=== PATIENT | female | born 1945 | race Caucasian/White ===

== ENCOUNTER 2021-06-10 07:16 | Day surgery (SDC) | payer OTHER, SELFPAY ==
[2021-06-10] MEDS: Tropicam./Phenyleph. (1/2.5%) 5 ML BTL OS ×3 (07:52→08:06)
[2021-06-10 08:01] VITALS: BP 148/78; PULSE 78; RESP 16; TEMP 35.9; O2SAT 97
--- NOTE | 2021-06-10 08:35 | ANES.PREOP_ITS ---
General Info Date of Service Date Performed: 06/10/21 Height: 5 ft 3 in Weight: 82.5 kg Body Mass Index (BMI): 32.2 Surgical Procedure: Operation Date: 06/10/21 09:40 Proposed Procedures Side Surgeon p Cataract Extraction with IOL Implant Left Mohamud Whittington MD Meds Allergies and Home Medications Allergies Allergy/AdvReac Type Severity Reaction Status Date / Time lisinopril AdvReac Mild COUGH Unverified 06/10/21 07:54 Home Medication Medication Instructions Recorded ascorbic acid (vitamin C) [Vitamin 1,000 mg PO DAILY 06/08/21 C] aspirin 81 mg PO DAILY 06/08/21 calcium 500 mg PO DAILY 06/08/21 cholecalciferol (vitamin D3) 1,000 - 2,000 unit PO DAILY 06/08/21 [Vitamin D3] coenzyme Q10 [Co Q-10] 200 mg PO DAILY 06/08/21 cyanocobalamin (vitamin B-12) 2,500 mcg PO DAILY 06/08/21 [Vitamin B-12] metoprolol succinate 50 mg PO BID 06/08/21 rosuvastatin 5 mg PO DIRECTED 06/08/21 triamcinolone acetonide 1 applic TOPICAL TID 06/08/21 vitamin A acetate 10,000 unit SUBLINGUAL DAILY 06/08/21 Current Visit Medications: Current Medications Generic Name Dose Route Start Last Admin Trade Name Freq PRN Reason Stop Dose Admin Acetaminophen 1,000 mg 06/10/21 06:00 Acetaminophen 500 Mg Tab PO Q4H PRN PRN Miscellaneous Medication 0 ml 06/10/21 06:00 Prednisolone 1%, Moxifloxacin 0.5%, Nepafenac 0.1% 5ml Btl OS DIRECTED REPLACED BY [facility] Miscellaneous Medication 0 ml 06/10/21 06:00 06/10/21 08:06 Tropicam./Phenyleph. (1/2.5%) 5 Ml Btl OS 1 drp DIRECTED REPLACED BY [facility] Administration Tetracaine HCl 0 ml 06/10/21 06:00 Tetracaine 0.5% 4 Ml Btl OS DIRECTED [facility] Medical History Medical History Carotid stenosis Left mild by doppler 04/16/2007 Diabetes mellitus H/O cardiovascular stress test 12/2012 [facility] [place] normal [address]. Castillo [facility]. Normal 1998 ETT normal HTN (hypertension) Hx of mammogram Hypercholesteremia Obesity Retinopathy Per [facility] note: Ischemic. branch retinal artery occulsion-aortic arthroma- trial plavix-hemmhorrhage on ASA 81 mg Ischemic retinopathy and chest pains associated with driving at altitudes, particulary over [facility] Surgical History Surgical History (Updated 06/10/21 @ 07:54 by Heide Juarez) Hx of cholecystectomy Hx of hysterectomy S/P MANUEL-BSO (total abdominal hysterectomy and bilateral salpingo-oophorectomy) Tobacco Smoking/Tobacco Use Status: Former Tobacco Use Alcohol Alcohol Intake: former Substance Use Substance use type: does not use Vital Signs and Lab Results Vital Signs Most Recent Vital Signs in EMR: Most Recent Vital Signs Temp Pulse Resp BP Pulse Ox 35.9 C L 78 16 148/78 H 97 06/10/21 08:01 06/10/21 08:01 06/10/21 08:01 06/10/21 08:01 06/10/21 08:01 Lab Results Blood Type / Crossmatch: No Data to Display Complete Blood Count: No Data to Display Complete Metabolic Panel: No Data to Display Liver Function Panel: No Data to Display Coagulation Panel: No Data to Display Cardiac Panel: No Data to Display Arterial Blood Gas: No Data to Display Venous Blood Gas: No Data to Display Pancreas Panel: No Data to Display Thyroid Panel: No Data to Display Infectious Disease: No Data to Display Blood Cultures: No Data to Display Toxicology Panel: No Data to Display Anesthesia Assessment and Plan Anesthesia History Personal History: No History of Anesthesia Complications Family History: No Family History of Anesthesia Complications Exercise Tolerance Exercise Tolerance: Metabolic Equivalents>4 Pertinent Negatives Pertinent Negatives: No Symptoms of GERD, No Major Pulmonary Symptoms or Complaints and No History of CVA/TIA Cardiac & Pulmonary Exam Cardiac Exam: Normal S1/S2 Heart Sounds Pulmonary Exam: Clear Bilateral Breath Sounds Airway Exam Known Difficult Airway: No Mallampati Class: 2 Mouth Opening: Normal (> 3cm) Thyromental Distance: Greater than 3 cm Neck Range of Motion: Full ROM Neck Circumference: Normal Teeth Condition: Normal Dentition ASA Classification ASA Score: ASA 2 Emergency Case?: No NPO Status NPO Status: NPO Clears >2 hours, Solids >8 hours Anesthesia Plan Resuscitation Status: Full Code Anesthesia Technique: MAC Anesthesia Airway Planned: Natural Airway Monitors Used: Standard Monitors
[2021-06-10 08:38] VITALS: BMI 32.2
[2021-06-10] MEDS: Tetracaine 0.5% 4 ML BTL OS (09:21)
[2021-06-10] MEDS: Balanced Salt Soln.-PLUS 500 ML BAG (09:22)
[2021-06-10] MEDS: Duovisc Viscoelastic System EACH 1 EACH (09:23)
[2021-06-10] MEDS: Lidocaine 1% Pres-Free 5 ML VIAL (09:23)
[2021-06-10] MEDS: Lidocaine 2% Jelly 6 ML SYR (09:24)
[2021-06-10] MEDS: Povidone-Iodine Ophth 30 ML BTL (09:25)
[2021-06-10] MEDS: Trypan Blue 0.06% 0.5 ML SYR (09:26)
[2021-06-10 09:37] VITALS: BP 177/92; PULSE 84; RESP 18; TEMP 36.4; O2SAT 97
--- NOTE | 2021-06-10 09:37 | W.PM.DSUDISC ---
Discharge Plan Disposition Patient Disposition: HOME Condition: Good Discharge Details Attending Provider: Mohamud Whittington Primary Care Provider: My Elliott Home Meds and New Rx's Prescriptions: No Action metoprolol succinate 50 mg tablet extended release 24 hr 50 mg PO BID RF: 0 calcium 500 mg Tablet 500 mg PO DAILY RF: 0 cyanocobalamin (vitamin B-12) [Vitamin B-12] 1,000 mcg Tablet 2,500 mcg PO DAILY RF: 0 triamcinolone acetonide 0.1 % Cream 1 applic TOPICAL TID RF: 0 aspirin 81 mg Capsule,Delayed Release(Dr/Ec) 81 mg PO DAILY RF: 0 ascorbic acid (vitamin C) [Vitamin C] 500 mg Tablet,Chewable 1,000 mg PO DAILY RF: 0 rosuvastatin 5 mg tablet 5 mg PO DIRECTED RF: 0 coenzyme Q10 [Co Q-10] 200 mg Capsule 200 mg PO DAILY RF: 0 cholecalciferol (vitamin D3) [Vitamin D3] 25 mcg (1,000 unit) Tablet 1,000 - 2,000 unit PO DAILY RF: 0 vitamin A acetate 10,000 unit Tablet, Sublingual 10,000 unit sublingual DAILY RF: 0 Discharge Instructions Stand Alone Forms: Post-op Topical Cataract, Hilda Mejias (DSU) Discharge Orders Discharge Orders: Discharge Order (Routine); Ordered 06/10/21 Ordered By: Mohamud Whittington DS: Diagnosis Discharge Diagnosis (1) Nuclear sclerotic cataract of left eye: Status: Resolved (2) Cortical cataract of left eye: Status: Resolved
--- NOTE | 2021-06-10 09:38 | ROE_ITS ---
Date of service: 06/10/21 Time of Service: 09:38 Operative Note Operative Note DATE OF PROCEDURE: 06/10/21 PRE-OP DIAGNOSIS: Nuclear/cortical cataract, left eye Poor red reflex, left eye secondary to cortical cataract POST-OP DIAGNOSIS: same PROCEDURE: Cataract extraction using phacoemulsification with intraocular lens implant, left eye, using capsular staining with Vision Blue SURGEON: Mohamud Whittington ANESTHESIA TYPE: Local By Surgeon and MAC Refer to Anesthesia Record COMPLICATIONS: None Patient was transported to: same day Patient's condition: stable Implants: Jamie and Jamie / [employer] Tecnis [id number] Indications: Progressive decreased vision due to cataract, left eye, with poor red reflex Procedure Description: CATARACT SURGERY OPERATIVE REPORT PREOPERATIVE DIAGNOSIS: 1. Nuclear/cortical cataract, left eye 2. Poor red reflex secondary to #1 POSTOPERATIVE DIAGNOSIS: Same OPERATION: 1. Cataract extraction using phacoemulsification with posterior chamber intraocular lens implant, left eye. 2. Capsular staining with Vision Blue IOL: IOL Universal Branch Consultant/Model: Jamie & Jamie / MARIA EUGENIA Tecnis [id number] IOL Power: + 22.0 diopters IOL Serial Number: [id number] Optic Diameter: 6.0 mm Haptic/Overall Diameter: 13.0 mm PHACO INFO: Noel Centurion Vision System with OZil and Active Fluidics Cumulative Dispersed Energy (CDE): 6.98 seconds SURGEON: Mohamud Whittington MD, CELIA ANESTHESIA: Monitored A [facility] (MAC), with local sub-tenon's anesthetic infiltration COMPLICATIONS: None SPECIMENS: None INDICATIONS FOR PROCEDURE: The patient is a 75-year-old lady with history of diminished visual acuity in her left eye secondary to the development of significant nuclear and cortical cataract. She is symptomatic enough that she desires cataract surgery and attempt to improve and maximize her vision. The option of cataract surgery was offered to the patient and she wished to proceed. PROCEDURE: The correct surgical eye was identified and marked as the left eye and the pupil was dilated in the preoperative area using mydriatics and cycloplegics. The dilated pupil size was 7.0 mm. She elected to proceed without oral sedation. The patient was brought to the operating room where cardiopulmonary monitoring was instituted and surgical time-out was performed, confirming the correct operative eye and IOL power. Topical anesthesia was administered and ophthalmic povidone-iodine 5% was instilled into the conjunctival fornices. Lidocaine gel was applied to the cornea and the mallika-ocular area was prepped with Betadine 10% solution and draped in the usual sterile fashion for intraocular surgery, including an aperture drape. A Tegaderm transparent film dressing was cut in half and used to cover the lashes and lid margins. Care was taken to sequester the lashes and lid margins under the Tegaderm dressing. A lid speculum was placed between the lids of the operative eye and the Rima-Daryl operating microscope was maneuvered into position. Fatoumata scissors were then used to make a conjunctival buttonhole approximately 6mm posterior to the limbus in the inferonasal quadrant. Blunt dissection was carried out to expose bare sclera, and a blunt-tipped sub-tenon?s anesthesia cannula was introduced and passed posteriorly along the globe where non- preserved plain lidocaine was injected into posterior sub-Tenon?s space. A sideport knife was used to make a paracentesis port superiorly/superiortemporally. Intraocular phenylephrine/lidocaine was injected int the anterior chamber.. Air was then injected into the anterior chamber, followed by Vision Blue, which was painted over the anterior capsule and then irrigated out using BSS. The anterior chamber was filled with viscoelastic. A 2.4mm keratome knife was used to create a half-thickness groove at the limbus and then to construct a three-plane near-clear corneal tunnel extending 2.0mm into clear cornea at the 3:00 position. A flap was raised on the anterior capsule and capsulorhexis forceps were used to complete a continuous curvilinear capsulorhexis of 5.5 mm. Balanced salt solution was then used to perform cortical cleaving hydrodissection and nuclear hydrodelineation until the lens could be freely rotated within the capsular bag. The lens nucleus was then disassembled and removed within the capsular bag and iris plane using phacoemulsification. Residual cortical material was removed using the 45-degree angled silicone I/A tip with 0.3mm port. The posterior capsule was carefully polished to remove as much residual lens epithelial cells as safely possible. The capsular bag was then inflated and the anterior chamber deepened with viscoelastic. The lens implant described above was inserted into the capsular bag using the MARIA EUGENIA [place] Injector. A Kuglen hook was used to dial the IOL into position. Residual viscoelastic was then removed first from posterior to the IOL, then from the anterior chamber using the I/A handpiece. The lens implant was noted to center nicely within the capsular bag. The incisions were stromally hydrated, and the anterior chamber was reformed using BSS. Then 0.5cc of moxifloxacin 1.0mg/ml were injected into the capsular bag and anterior chamber. The incisio ns were checked with a Weck spear and found to be secure. Several drops of ophthalmic povidone-iodine 5% were then applied to the eye followed by two drops of Imprimis combination prednisolone/moxifloxacin/nepafenac solution. The drapes were removed and a clear plastic protective eye shield was placed over the eye. The patient was then returned to Same Day Surgery in stable condition.
--- NOTE | 2021-06-10 09:53 | W.ANESPOSTOP ---
Postoperative Evaluation Date, Time and Location Date Performed: 06/10/21 Time Performed: 09:40 Patient Location: Day Surgery Unit Vital Signs Most Recent Imported Vital Signs: Most Recent Vital Signs Temp Pulse Resp BP Pulse Ox 36.4 C L 84 18 177/92 H 97 06/10/21 09:37 06/10/21 09:37 06/10/21 09:37 06/10/21 09:37 06/10/21 09:37 Pain Score Most Recent Pain Score: Most Recent Pain Score Pain Level 0 06/10/21 09:37 Assessment Mental Status: Awake (Alert & Oriented to Patient Baseline) Airway and Respiratory Function: Patent airway with normal (patient baseline) respiratory exam Cardiovascular Function: Hemodynamically Stable Hydration Status: Adequately Hydrated Nausea & Vomiting: No Nausea or Vomiting Pain: Pt. Denies Any Pain Peripheral Nerve Block: Patient did not receive a nerve block
== END 2021-06-10 09:59 | disposition home or self-care (01) ==
PROVIDERS: PCP Family Medicine; Visit Provider Ophthalmology
PROC: (CPT 66984; principal; 2021-06-10 09:30)
DX: H25.12 Age-related nuclear cataract, left eye (principal); E11.9 Type 2 diabetes mellitus without complications; I10 Essential (primary) hypertension
CPT/HCPCS: 66984; V2632

== ENCOUNTER 2021-06-22 03:34 | Outpatient (CLI) | payer OTHER, SELFPAY ==
[2021-06-22 10:10] LABS: Source Nasal/Nares
[2021-06-22 12:51] LABS: COVID-19 PCR Negative (Negative)
== END 2021-06-22 03:35 | disposition home or self-care (01) ==
LOC: LBO 03:34
PROVIDERS: PCP Family Medicine; Visit Provider Ophthalmology
DX: Z20.822 Contact with and (suspected) exposure to COVID-19 (principal); Z01.818 Encounter for other preprocedural examination
CPT/HCPCS: 87635

== ENCOUNTER 2021-06-24 06:43 | Day surgery (SDC) | payer OTHER, SELFPAY ==
--- NOTE | 2021-06-24 07:11 | W.ANESPRE ---
General Info Date of Service Date Performed: 06/24/21 Height: 5 ft 3 in Weight: 82.5 kg Body Mass Index (BMI): 32.2 Surgical Procedure: Operation Date: 06/24/21 08:40 Proposed Procedures Side Surgeon p Cataract Extraction with IOL Implant Mohamud Whittington MD Meds Allergies and Home Medications Allergies Allergy/AdvReac Type Severity Reaction Status Date / Time lisinopril AdvReac Mild COUGH Unverified 06/21/21 13:46 Home Medication Medication Instructions Recorded ascorbic acid (vitamin C) [Vitamin 1,000 mg PO DAILY 06/08/21 C] aspirin 81 mg PO DAILY 06/08/21 calcium 500 mg PO DAILY 06/08/21 cholecalciferol (vitamin D3) 1,000 - 2,000 unit PO DAILY 06/08/21 [Vitamin D3] coenzyme Q10 [Co Q-10] 200 mg PO DAILY 06/08/21 cyanocobalamin (vitamin B-12) 2,500 mcg PO DAILY 06/08/21 [Vitamin B-12] metoprolol succinate 50 mg PO BID 06/08/21 rosuvastatin 5 mg PO DIRECTED 06/08/21 triamcinolone acetonide 1 applic TOPICAL TID 06/08/21 vitamin A acetate 10,000 unit SUBLINGUAL DAILY 06/08/21 Current Visit Medications: Current Medications Generic Name Dose Route Start Last Admin Trade Name Freq PRN Reason Stop Dose Admin Acetaminophen 1,000 mg 06/24/21 06:00 Acetaminophen 500 Mg Tab PO Q4H PRN PRN Miscellaneous Medication 0 ml 06/24/21 06:00 Prednisolone 1%, Moxifloxacin 0.5%, Nepafenac 0.1% 5ml Btl OS DIRECTED JOCELYN Miscellaneous Medication 0 ml 06/24/21 06:00 Tropicam./Phenyleph. (1/2.5%) 5 Ml Btl OS DIRECTED JOCELYN Tetracaine HCl 0 ml 06/24/21 06:00 Tetracaine 0.5% 4 Ml Btl OS DIRECTED JOCELYN PFSH Active Problems Active Problems: Problem Status Onset Code Cortical cataract of right eye H26.9 Nuclear sclerotic cataract of right eye H25.11 Nuclear sclerotic cataract of left eye H25.12 Cortical cataract of left eye H26.9 Medical History Medical History (Updated 06/23/21 @ 20:31 by Mohamud Whittington MD) Carotid stenosis Left mild by doppler 04/16/2007 Diabetes mellitus H/O cardiovascular stress [place] 12[place]2012 [facility] [place] [address] [place]. Castillo [facility]. Normal 1998 ETT normal HTN (hypertension) Hx of mammogram Hypercholesteremia Obesity Retinopathy Per [facility] note: Ischemic. branch retinal artery occulsion-aortic arthroma-trial plavix-hemmhorrhage on ASA 81 mg Ischemic retinopathy and chest pains associated with driving at altitudes, particulary over [facility] Surgical History Surgical History Hx of cholecystectomy Hx of hysterectomy S/P MANUEL-BSO (total abdominal hysterectomy and bilateral salpingo-oophorectomy) Tobacco Smoking/Tobacco Use Status: Former Tobacco Use Alcohol Alcohol Intake: former Substance Use Substance use type: does not use Vital Signs and Lab Results Lab Results Blood Type / Crossmatch: No Data to Display Complete Blood Count: No Data to Display Complete Metabolic Panel: No Data to Display Liver Function Panel: No Data to Display Coagulation Panel: No Data to Display Cardiac Panel: No Data to Display Arterial Blood Gas: No Data to Display Venous Blood Gas: No Data to Display Pancreas Panel: No Data to Display Thyroid Panel: No Data to Display Infectious Disease: Coronavirus (COVID-19)(PCR) Negative (Negative) 06/22/21 09:36 06/22/21 Coronavirus 2019 Source Nasal/Nares 06/22/21 09:36 06/22/21 Blood Cultures: No Data to Display Toxicology Panel: No Data to Display Anesthesia Assessment and Plan Anesthesia History Personal History: No History of Anesthesia Complications Family History: No Family History of Anesthesia Complications Exercise Tolerance Exercise Tolerance: Metabolic Equivalents>4 Pertinent Negatives Pertinent Negatives: No Symptoms of GERD and No Major Pulmonary Symptoms or Complaints Cardiac & Pulmonary Exam Cardiac Exam: Normal S1/S2 Heart Sounds Pulmonary Exam: Clear Bilateral Breath Sounds Airway Exam Known Difficult Airway: No Mallampati Class: 2 Mouth Opening: Normal (> 3cm) Thyromental Distance: Greater than 3 cm Neck Range of Motion: Full ROM Neck Circumference: Normal Teeth Condition: Normal Dentition ASA Classification ASA Score: ASA 2 Emergency Case?: No NPO Status NPO Status: NPO Clears >2 hours, Solids >8 hours Anesthesia Plan Resuscitation Status: Full Code Anesthesia Technique: MAC Anesthesia Airway Planned: Natural Airway Monitors Used: Standard Monitors
[2021-06-24 07:14] VITALS: BMI 32.2
[2021-06-24] MEDS: Tropicam./Phenyleph. (1/2.5%) 5 ML BTL OS ×3 (07:21→07:32)
[2021-06-24 07:27] VITALS: BP 154/84; PULSE 72; RESP 16; TEMP 36.5; O2SAT 96
[2021-06-24] MEDS: Tetracaine 0.5% 4 ML BTL OS (08:10)
[2021-06-24] MEDS: Balanced Salt Soln.-PLUS 500 ML BAG (08:12)
[2021-06-24] MEDS: Duovisc Viscoelastic System EACH 1 EACH (08:18)
[2021-06-24] MEDS: Lidocaine 2% Jelly 6 ML SYR (08:18)
[2021-06-24] MEDS: Lidocaine 1% Pres-Free 5 ML VIAL (08:18)
[2021-06-24] MEDS: Povidone-Iodine Ophth 30 ML BTL (08:19)
--- NOTE | 2021-06-24 08:37 | W.PM.DSUDISC ---
Discharge Plan Disposition Patient Disposition: HOME Condition: Good Discharge Details Attending Provider: Mohamud Whittington Primary Care Provider: My Elliott Home Meds and New Rx's Prescriptions: No Action metoprolol succinate 50 mg tablet extended release 24 hr 50 mg PO BID RF: 0 calcium 500 mg Tablet 500 mg PO DAILY RF: 0 cyanocobalamin (vitamin B-12) [Vitamin B-12] 1,000 mcg Tablet 2,500 mcg PO DAILY RF: 0 triamcinolone acetonide 0.1 % Cream 1 applic TOPICAL TID RF: 0 aspirin 81 mg Capsule,Delayed Release(Dr/Ec) 81 mg PO DAILY RF: 0 ascorbic acid (vitamin C) [Vitamin C] 500 mg Tablet,Chewable 1,000 mg PO DAILY RF: 0 rosuvastatin 5 mg tablet 5 mg PO DIRECTED RF: 0 coenzyme Q10 [Co Q-10] 200 mg Capsule 200 mg PO DAILY RF: 0 cholecalciferol (vitamin D3) [Vitamin D3] 25 mcg (1,000 unit) Tablet 1,000 - 2,000 unit PO DAILY RF: 0 vitamin A acetate 10,000 unit Tablet, Sublingual 10,000 unit sublingual DAILY RF: 0 Discharge Instructions Stand Alone Forms: Post-op Topical Cataract, Hilda Mejias (DSU) Discharge Orders Discharge Orders: Discharge Order (Routine); Ordered 06/24/21 Ordered By: Mohamud Whittington DS: Diagnosis Discharge Diagnosis (1) Nuclear sclerotic cataract of right eye: Status: Resolved (2) Cortical cataract of right eye: Status: Resolved
[2021-06-24 08:40] VITALS: BP 177/81; PULSE 73; RESP 18; TEMP 36; O2SAT 99
--- NOTE | 2021-06-24 08:41 | W.PM.OP ---
Date of service: 06/24/21 Time of Service: 08:41 Operative Note Operative Note DATE OF PROCEDURE: 06/24/21 PRE-OP DIAGNOSIS: Nuclear/cortical cataract, right eye POST-OP DIAGNOSIS: same PROCEDURE: Cataract extraction using phacoemulsification with intraocular lens implant, right eye SURGEON: Mohamud Whittington ANESTHESIA TYPE: Local By Surgeon and MAC Refer to Anesthesia Record ESTIMATED BLOOD LOSS: 0 PATHOLOGY: none sent COMPLICATIONS: None Patient was transported to: same day Patient's condition: stable Implants: Jamie & Jamie/MARIA EUGENIA Tecnis [id number] Indications: Progressive visual loss due to cataract, right eye Procedure Description: CATARACT SURGERY OPERATIVE REPORT PREOPERATIVE DIAGNOSIS: 1. Nuclear/cortical cataract, right eye POSTOPERATIVE DIAGNOSIS: Same OPERATION: 1. Cataract extraction using phacoemulsification with posterior chamber intraocular lens implant, right eye. IOL: IOL Sander Setter/Model: Jamie & Jamie / MAIRA EUGENIA Tecnis [id number] IOL Power: + 22.0 diopters IOL Serial Number: [id number] Optic Diameter: 6.0mm Haptic/Overall Diameter: 13.0mm PHACO INFO: Noel Mytopiaurion Vision System with OZil and Active Fluidics Cumulative Dispersed Energy (CDE): 5.55 seconds SURGEON: Mohamud Whittington MD, CELIA ANESTHESIA: Monitored Anesthesia Care (MAC), with local sub-tenon's anesthetic infiltration COMPLICATIONS: None SPECIMENS: None INDICATIONS FOR PROCEDURE: The patient is a 75-year-old lady with history of diminished visual acuity in her right eye secondary to the development of nuclear and cortical cataract. She has already undergone cataract surgery in the left eye and is doing well postoperatively. She now presents for cataract surgery in the right eye. PROCEDURE: The correct surgical eye was identified and marked as the right eye and the pupil was dilated in the preoperative area using mydriatics and cycloplegics. The dilated pupil size was 7.0 mm. She elected to proceed without oral sedation. The patient was brought to the operating room where cardiopulmonary monitoring was instituted and surgical time-out was performed, confirming the correct operative eye and IOL power. Topical anesthesia was administered and ophthalmic povidone-iodine 5% was instilled into the conjunctival fornices. Lidocaine gel was applied to the cornea and the mallika-ocular area was prepped with Betadine 10% solution and draped in the usual sterile fashion for intraocular surgery, including an aperture drape. A Tegaderm transparent film dressing was cut in half and used to cover the lashes and lid margins. Care was taken to sequester the lashes and lid margins under the Tegaderm dressing. A lid speculum was placed between the lids of the operative eye and the Rima-Daryl operating microscope was maneuvered into position. Fatoumata scissors were then used to make a conjunctival buttonhole approximately 6mm posterior to the limbus in the inferonasal quadrant. Blunt dissection was carried out to expose bare sclera, and a blunt-tipped sub-tenon?s anesthesia cannula was introduced and passed posteriorly along the globe where non-preserved plain lidocaine was injected into posterior sub-Tenon?s space. A sideport knife was used to make a paracentesis port inferotemporally. Intraocular phenylephrine/lidocaine was injected into the anterior chamber. The anterior chamber was filled with viscoelastic. A 2.4mm keratome knife was used to create a half-thickness groove at the limbus and then to construct a three-plane near-clear corneal tunnel extending 2.0mm into clear cornea superiortemporally. A flap was raised on the anterior capsule and capsulorhexis forceps were used to complete a continuous curvilinear capsulorhexis of 5.0 mm. Balanced salt solution was then used to perform cortical cleaving hydrodissection and nuclear hydrodelineation until the lens could be freely rotated within the capsular bag. The lens nucleus was then disassembled and removed within the capsular bag and iris plane using phacoemulsification. Residual cortical material was removed using the I/A handpiece. The posterior capsule was carefully polished to remove as much residual lens epithelial cells as safely possible. The capsular bag was then inflated and the anterior chamber deepened with viscoelastic. The lens implant described above was inserted into the capsular bag using the MARIA EUGENIA [place] Injector. A Kuglen hook was used to dial the IOL into position. Residual viscoelastic was then removed first from posterior to the IOL, then from the anterior chamber using the I/A handpiece. The lens implant was noted to center nicely within the capsular bag. The incisions were stromally hydrated, and the anterior chamber was reformed using BSS. Then 0.5cc of moxifloxacin 1.0mg/ml were injected into the capsular bag and anterior chamber. The incisions were checked with a Weck spear and found to be secure. Several drops of ophthalmic povidone-iodine 5% were then applied to the eye followed by two drops of Imprimis combination prednisolone/moxifloxacin/nepafenac solution. The drapes were removed and a clear plastic protective eye shield was placed over the eye. The patient was then returned to Same Day Surgery in stable condition.
--- NOTE | 2021-06-24 09:00 | W.ANESPOSTOP ---
Postoperative Evaluation Date, Time and Location Date Performed: 06/24/21 Time Performed: 08:50 Patient Location: Day Surgery Unit Vital Signs Most Recent Imported Vital Signs: Most Recent Vital Signs Temp Pulse Resp BP Pulse Ox 36 C L 73 18 177/81 H 99 06/24/21 08:40 06/24/21 08:40 06/24/21 08:40 06/24/21 08:40 06/24/21 08:40 Pain Score Most Recent Pain Score: Most Recent Pain Score Pain Level 0 06/24/21 08:40 Assessment Mental Status: Awake (Alert & Oriented to Patient Baseline) Airway and Respiratory Function: Patent airway with normal (patient baseline) respiratory exam Cardiovascular Function: Hemodynamically Stable Hydration Status: Adequately Hydrated Nausea & Vomiting: No Nausea or Vomiting Pain: Pt. Denies Any Pain Peripheral Nerve Block: Patient did not receive a nerve block
== END 2021-06-24 09:02 | disposition home or self-care (01) ==
PROVIDERS: PCP Family Medicine; Visit Provider Ophthalmology
PROC: (CPT 66984; principal; 2021-06-24 08:30)
DX: H25.11 Age-related nuclear cataract, right eye (principal); E11.9 Type 2 diabetes mellitus without complications
CPT/HCPCS: 66984; V2632